=== PATIENT | female | born 1950 | race Hispanic/Latino ===

== ENCOUNTER 2017-03-29 18:32 | Emergency (ER) | payer MEDICARE, OTHER ==
[2017-03-29] MEDS ORDERED: Ondansetron HCl/PF 4 MG/2 ML Vial ONE (19:13)
[2017-03-29 19:42] LABS: Bilirubin Small (Negative); Blood, Urine Trace (Negative); Glucose, Urine (Dipstick) Negative (Negative); Ketone, Urine Trace mg/dL (Negative); Nitrite Negative (Negative); Protein, Urine (Dipstick) 30 mg/dL (Neg-Trace); Urobilinogen 0.2 mg/dL (0.2-1.0)
[2017-03-29 19:43] LABS: #Lymphocytes 1.1 thou/uL (1.20-3.40); #Monocytes 0.4 thou/uL (0.11-0.59); #Neutrophils 7.9 thou/uL (1.40-6.50); %Basophils 0.4 % (0.0-1.0); %Eosinophils 0.4 % (0.0-10.0); %Lymphocytes 11.8 % (21.0-51.0); %Monocytes 3.7 % (0.0-10.0); Hematocrit 47.3 % (36.0-47.0); Mean Platelet Volume 5.3 fL (7.4-10.4); Red Blood Cell (RBC) Count 5.35 mill/uL (4.20-5.40); White Blood Cell (WBC) Count 9.4 thou/uL (4.8-10.8)
[2017-03-29 19:52] LABS: ALT (SGPT) 36 U/L (8-55); AST (SGOT) 31 U/L (5-34); Alkaline Phosphatase 71 U/L (40-150); Anion Gap 18 mmol/L (10-20); BUN (Urea Nitrogen) 12 mg/dL (9.8-20.1); Bilirubin, Total 0.6 mg/dL (0.2-1.2); Calc. Creatinine Clearance 0 mL/min (70-130); Calcium 9.4 mg/dL (7.8-10.44); Carbon Dioxide 19 mmol/L (23-31); Chloride 105 mmol/L (98-107); Estimated GFR-MDRD Greater than 90; Lipase 4 U/L (8-78); Protein, Total 7.3 g/dL (6.0-8.3)
[2017-03-29 20:03] LABS: Bacteria/HPF None Seen HPF (None Seen); Hyaline Casts/LPF 0-3 HYALINE CAST LPF (0-3 Hyaline); RBC/HPF 0-3 HPF (0-3); Squamous Epithelial 0-3 HPF (0-3); WBC/HPF 0-3 HPF (0-3)
== END 2017-03-29 20:45 | disposition home or self-care (01) ==
LOC: SCSER 18:32
DX: R11.2 Nausea with vomiting, unspecified (principal); R19.7 Diarrhea, unspecified; I25.2 Old myocardial infarction; I10 Essential (primary) hypertension
CPT/HCPCS: 80053; 81003; 81015; 83690; 85025; 96361; 96374; J2405

== ENCOUNTER 2018-01-26 14:31 | Outpatient (CLI) | payer MEDICARE, OTHER ==
--- NOTE | 2018-01-26 15:43 | RAD ---
THORACIC SPINE THREE VIEWS: HISTORY: Acute bilateral thoracic back pain, M54.6. TECHNIQUE: AP, lateral, and Swimmer's views of the thoracic spine are obtained. FINDINGS: Images demonstrate some kyphosis of the thoracic spine. No evidence of acute thoracic spine fracture is seen. No evidence of subluxations or significant bony lesions seen. IMPRESSION: Kyphosis of the thoracic spine with no evidence of acute fracture seen. POS: [facility]
--- NOTE | 2018-01-26 15:44 | RAD ---
TWO VIEWS LUMBAR SPINE: HISTORY: Back pain, M54.5. FINDINGS: AP and lateral views lumbar spine obtained. Images demonstrate multilevel lumbar posterior decompression and posterior fusion. Five [id number] lumbar vertebrae are seen. There is mild S-shaped scoliosis of the lumbar spine . There are some posterior osteophytes at the L2-3 and L3-4 levels. Minimal anterolisthesis of L3 o n L4 is seen. No evidence of acute lumbar spine fracture is seen. IMPRESSION: Previous lumbar spine surgical changes with no evidence of acute lumbar spine fractures or bony lesio ns seen. POS: [facility]
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
== END 2018-01-26 14:32 | disposition home or self-care (01) ==
LOC: SCSRAD 14:31
PROVIDERS: ATTEND Nurse Practitioner Family
DX: M54.2 Cervicalgia (principal); M54.6 Pain in thoracic spine; M54.5 Low back pain; M40.204 Unspecified kyphosis, thoracic region; Z98.1 Arthrodesis status
CPT/HCPCS: 72050; 72072; 72100

== ENCOUNTER 2018-09-06 15:40 | Emergency (ER) | payer MEDICARE, OTHER ==
[2018-09-06 16:12] LABS: Bilirubin Negative (Negative); Blood, Urine Negative (Negative); Clarity Clear (Clear); Glucose, Urine (Dipstick) Negative (Negative); Leukocyte Negative (Negative); Nitrite Negative (Negative); Protein, Urine (Dipstick) Negative (Neg-Trace); Specific Gravity, Urine 1.015 (1.005-1.030)
[2018-09-06] MEDS ORDERED: Ondansetron PF 4 MG/2 ML Vial ONE (16:17)
[2018-09-06 16:24] LABS: Band 5 % (5-11); Eosinophils 5 % (0-10); Lymphocytes 29 % (21-51); MDiff Complete? YES; Mean Corpuscular HGB CONC 34.8 g/dL (32.0-36.0); Mean Corpuscular Hemoglobin 30.6 pg (27.0-31.0); Mean Platelet Volume 5.2 fL (7.4-10.4); Monocytes 6 % (0-10); Neutrophil 53 % (42-75); Platelet Count 364 thou/uL (130-400); Platelet Morphology Comment Appears Adequate; RBC Distribution Width 12.4 % (11.5-14.5); Reactive Lymphocytes 1 % (0-10); Red Blood Cell (RBC) Count 5.23 mill/uL (4.20-5.40); White Blood Cell (WBC) Count 8.3 thou/uL (4.8-10.8)
[2018-09-06 16:28] LABS: ALT (SGPT) 35 U/L (8-55); AST (SGOT) 24 U/L (5-34); Albumin 4.4 g/dL (3.4-4.8); Alkaline Phosphatase 90 U/L (40-150); Anion Gap 14 mmol/L (10-20); BUN (Urea Nitrogen) 9 mg/dL (9.8-20.1); Bilirubin, Total 0.2 mg/dL (0.2-1.2); Calc. Creatinine Clearance 0 mL/min (70-130); Calcium 9.4 mg/dL (7.8-10.44); Carbon Dioxide 24 mmol/L (23-31); Chloride 104 mmol/L (98-107); Estimated GFR-MDRD 84; Globulin 2.8 g/dL (2.4-3.5); Glucose 114 mg/dL (80-115); Lipase 14 U/L (8-78); Potassium 3.9 mmol/L (3.5-5.1); Protein, Total 7.2 g/dL (6.0-8.3); Sodium 138 mmol/L (136-145)
--- NOTE | 2018-09-06 18:23 | CT ---
Noncontrast enhanced images of abdomen pelvis. HISTORY: Abdominal pain. Oral contrast was given. IV contrast not administered. The lung bases are unremarkable. No evidence of free intraperitoneal air seen. The liver and spleen are unremarkable. Pancreas is unremarkable. The gallbladder is not visualized. Adrenal glands unremarkable. Right kidney is unremarkable. The left kidney is unremarkable except for a posterior aspect midpole exophytic area possibly present ing cortical cysts. Confirmation with sonography may be of use to rule out a solid lesion. The patient's had multilevel lumbar surgical changes. No dilated loops of small bowel seen. Extensive colonic diverticulosis is present. IMPRESSION: Colonic diverticulosis.
== END 2018-09-06 18:45 | disposition home or self-care (01) ==
LOC: SCSER 15:40
DX: K57.30 Diverticulosis of large intestine without perforation or abscess without bleeding (principal); I10 Essential (primary) hypertension; I25.2 Old myocardial infarction; E78.00 Pure hypercholesterolemia, unspecified; Z79.899 Other long term (current) drug therapy
CPT/HCPCS: 36415; 74177; 80053; 81003; 83605; 83690; 85025; 96361; 96374; J2405

== ENCOUNTER 2018-11-29 16:19 | Emergency (ER) | payer MEDICARE, OTHER ==
[2018-11-29] MEDS ORDERED: Dexamethasone 10 MG/ML VIAL ONE (16:52)
--- NOTE | 2018-11-29 17:04 | RAD ---
RADIOGRAPH CHEST 2 VIEW: DATE: 11/29/2018 HISTORY: 68-year-old female with cough FINDINGS: The thoracic aorta is tortuous and ectatic. There is no evidence of airspace density, pulmonary edema , or pneumothorax. There is no cardiomegaly or pleural effusion. IMPRESSION: 1) No acute cardiopulmonary findings. 2) ectasia of thoracic aorta.
== END 2018-11-29 17:11 | disposition home or self-care (01) ==
LOC: SCSER 16:19
DX: J01.90 Acute sinusitis, unspecified (principal); E78.5 Hyperlipidemia, unspecified; I25.2 Old myocardial infarction; E11.9 Type 2 diabetes mellitus without complications; I10 Essential (primary) hypertension; Z79.899 Other long term (current) drug therapy; Z79.82 Long term (current) use of aspirin; Z79.891 Long term (current) use of opiate analgesic
CPT/HCPCS: 71046; 96372; J1100

== ENCOUNTER 2021-07-03 14:43 | Outpatient (CLI) | payer MEDICARE, OTHER | END 2021-07-03 14:44 | disposition home or self-care (01) | LOC: CT 14:43 | PROVIDERS: ATTEND Specialist | DX: J32.9 Chronic sinusitis, unspecified (principal); J30.9 Allergic rhinitis, unspecified; J30.0 Vasomotor rhinitis; J34.3 Hypertrophy of nasal turbinates; R09.81 Nasal congestion; R09.82 Postnasal drip; R09.89 Other specified symptoms and signs involving the circulatory and respiratory systems; K21.9 Gastro-esophageal reflux disease without esophagitis | CPT/HCPCS: 70486; 99214; G0463 ==

== ENCOUNTER 2023-03-31 14:19 | Outpatient (CLI) | payer MEDICARE, OTHER | END 2023-03-31 14:20 | disposition home or self-care (01) | LOC: RAD 14:19 | PROVIDERS: ATTEND Family Medicine | DX: W19.XXXD Unspecified fall, subsequent encounter (principal); M25.851 Other specified joint disorders, right hip; M25.751 Osteophyte, right hip; M47.816 Spondylosis without myelopathy or radiculopathy, lumbar region; Z98.1 Arthrodesis status | CPT/HCPCS: 72100 ==

== ENCOUNTER 2023-04-01 10:47 | Outpatient (CLI) | payer OTHER | END 2023-04-01 10:48 | disposition home or self-care (01) | LOC: BICRAD 10:47 | PROVIDERS: ATTEND Family Medicine | DX: W19.XXXD Unspecified fall, subsequent encounter (principal); S92.331A Displaced fracture of third metatarsal bone, right foot, initial encounter for closed fracture; S92.341A Displaced fracture of fourth metatarsal bone, right foot, initial encounter for closed fracture ==